=== PATIENT | female | born 1955 | race Caucasian/White ===

== ENCOUNTER → 2020-10-25 | Day surgery (SDC) | payer OTHER ==
[~2020-10-25] MED LIST: ALLEGRA ALLERG180 MG PO; ANTIVERT 25MG T25 MG PO; ASPIRIN EC81 MG PO; ATORVASTATIN CA20 MG PO; BIOTIN PO; CLARITIN10 M2 PO; COSOPT OPTH SOL10 ML EYEBOTH; DORZOLAMIDE-TIM10 ML EYEBOTH; FLEXERIL 10 MG10 MG PO; LATANOPROST 0.005% EYEBOTH; LIPITOR20 MG PO; LISINOPRIL10 MG PO; MACROBID 100 M100 MG PO; MAGNESIUM250 MG PO; METFORMIN HCL1000 MG PO; METFORMIN HCL500 M2 PO; METOPROLOL SUCC50 MG PO; PROTONIX40 MG PO; RHOPRESSA2.5 ML EYEBOTH; RHOPRESSA2.5 ML OP; TYLENOL EXTRA500 MG PO; TYLENOL PO; VITAMIN B12 PO; VITAMIN D325 MCG PO; ZOFRAN ODT 4 MG4 MG PO
== END | disposition home or self-care (01) ==
LOC: OR 10:44
DX: N21.0 Calculus in bladder (principal); N32.89 Other specified disorders of bladder; E78.5 Hyperlipidemia, unspecified; I10 Essential (primary) hypertension; M06.9 Rheumatoid arthritis, unspecified; Z79.84 Long term (current) use of oral hypoglycemic drugs; Z79.899 Other long term (current) drug therapy; Z88.5 Allergy status to narcotic agent; Z88.6 Allergy status to analgesic agent
CPT/HCPCS: 82962; J7040

== ENCOUNTER → 2020-11-08 | Outpatient (CLI) | payer OTHER ==
[2020-11-08 13:24] LABS: BUN/CREATININE RATIO 14 (0-10)
== END ==
LOC: OPSV2 11:30
PROVIDERS: Anesthesiology
DX: Z01.818 Encounter for other preprocedural examination (principal)
CPT/HCPCS: 36415; 80048; 93005

== ENCOUNTER → 2020-11-11 | Day surgery (SDC) | payer OTHER ==
[2020-11-19 16:15] LABS: CALCIUM OXALATE MONOHYDRATE 100 % (.); COLOR Brown (.); SIZE 6x6 mm (.); WEIGHT 1041 mg (.)
== END | disposition home or self-care (01) ==
LOC: OR 07:09
PROVIDERS: Urology
DX: N21.0 Calculus in bladder (principal); N81.10 Cystocele, unspecified; I10 Essential (primary) hypertension; F41.9 Anxiety disorder, unspecified; E78.5 Hyperlipidemia, unspecified; M06.9 Rheumatoid arthritis, unspecified; E11.9 Type 2 diabetes mellitus without complications; K21.9 Gastro-esophageal reflux disease without esophagitis; E55.9 Vitamin D deficiency, unspecified; Z88.6 Allergy status to analgesic agent; Z88.5 Allergy status to narcotic agent; Z79.82 Long term (current) use of aspirin; Z79.84 Long term (current) use of oral hypoglycemic drugs; Z79.899 Other long term (current) drug therapy
CPT/HCPCS: 82962; C1769; C1894; C2617; J1100; J1885; J1956; J2250; J2405; J2704; J3010; J7030; J7120

== ENCOUNTER → 2020-11-22 | Outpatient (CLI) | payer OTHER | LOC: US 10-18 10:00 → EXRD 11-11 08:00 | DX: R74.8 Abnormal levels of other serum enzymes (principal); K76.0 Fatty (change of) liver, not elsewhere classified | CPT/HCPCS: 76705 ==

== ENCOUNTER 2021-03-26 05:09 | Emergency (ER) | payer OTHER ==
[2021-03-26] MEDS ORDERED: KEFLEX750 MG PO (06:25)
== END 2021-03-26 07:43 | disposition home or self-care (01) ==
LOC: ER1 05:09
DX: R33.9 Retention of urine, unspecified (principal); Z90.49 Acquired absence of other specified parts of digestive tract
CPT/HCPCS: 51702; 81001; 87086; 99284

== ENCOUNTER 2021-04-18 01:13 | Emergency (ER) | payer OTHER ==
[~2021-04-18 01:13] MED LIST changes: +KEFLEX750 MG PO
[2021-04-18 02:37] LABS: HEMOGLOBIN 11.5 gm/dl (12.3-15.3); RED BLOOD COUNT 4.76 M/UL (4.00-5.10); WHITE BLOOD COUNT 7.4 K/UL (4.5-11.0)
[2021-04-18 02:53] LABS: BUN/CREATININE RATIO 19 (0-10)
[2021-04-18] MEDS ORDERED: OMNICEF 300 MG300 MG PO (05:33)
== END 2021-04-18 06:10 | disposition home or self-care (01) ==
LOC: ER1 01:13
PROVIDERS: Physician Assistant
DX: N39.0 Urinary tract infection, site not specified (principal); R33.9 Retention of urine, unspecified; E11.9 Type 2 diabetes mellitus without complications; I10 Essential (primary) hypertension; Z90.49 Acquired absence of other specified parts of digestive tract; Z88.5 Allergy status to narcotic agent
CPT/HCPCS: 51702; 80053; 81001; 85025; 87077; 87086; 87186; 99284; Q9967

== ENCOUNTER → 2021-10-21 | Outpatient (CLI) | payer OTHER ==
[~2021-10-21] MED LIST changes: +OMNICEF 300 MG300 MG PO
== END ==
LOC: KOH-I 13:00
DX: R91.1 Solitary pulmonary nodule (principal); K76.89 Other specified diseases of liver; I77.819 Aortic ectasia, unspecified site
CPT/HCPCS: 71250